=== PATIENT | female | born 1975 | race Caucasian/White ===

== ENCOUNTER 2019-01-10 22:24 | Emergency (ER) | payer BC, MEDICAID ==
[2019-01-10 22:36] VITALS: BP 149/127; PULSE 137
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
[2019-01-11 00:17] LABS: ACETAMINOPHEN 0 ug/mL (10-30)
== END 2019-01-11 08:00 ==
LOC: JD.ED 22:24
DX: F32.9 Major depressive disorder, single episode, unspecified (principal); E66.9 Obesity, unspecified; Z68.31 Body mass index [BMI] 31.0-31.9, adult; Z88.0 Allergy status to penicillin; Z88.8 Allergy status to other drugs, medicaments and biological substances
CPT/HCPCS: 36415; 80053; 80306; 81025; 84443; 85025; 93005; 93010; 99285; 99285-25; G0480